=== PATIENT | female | born 1995 | race African-American/Black ===

== ENCOUNTER 2020-08-11 11:46 | Outpatient (CLI) | payer OTHER, SELFPAY ==
[2020-08-11 22:32] LABS: SARS-CoV-2 RNA PCR Negative
== END 2020-08-11 11:47 | disposition home or self-care (01) ==
LOC: ANHCOVIDDT 11:47
PROVIDERS: PCP Nurse Practitioner Family; Visit Provider Otolaryngology
DX: Z01.812 Encounter for preprocedural laboratory examination (principal); Z11.59 Encounter for screening for other viral diseases
CPT/HCPCS: 87635; C9803; U0003

== ENCOUNTER 2020-08-12 09:37 | Outpatient (CLI) | payer OTHER, SELFPAY ==
--- NOTE | 2020-08-12 09:40 | ECG_ITS ---
Measurements Intervals [place] Rate: 66 P: 58 MA: 152 QRS: 28 QRSD: 82 T: 19 QT: 392 QTc: 412 Interpretive Statements SINUS RHYTHM WITH SINUS ARRHYTHMIA NONSPECIFIC T-WAVE ABNORMALITY- INFERIOR LEADS BASELINE ARTIFACT- I, II, AVR BORDERLINE ECG Electronically Signed On 08-12-2020 10:16:10 [employer]NAGER POST by Tomas Fajardo D.O.
== END 2020-08-12 09:38 | disposition home or self-care (01) ==
LOC: ANHSURGERY 09:40
PROVIDERS: PCP Nurse Practitioner Family; Visit Provider Otolaryngology
DX: Z01.818 Encounter for other preprocedural examination (principal); I10 Essential (primary) hypertension; R94.31 Abnormal electrocardiogram [ECG] [EKG]
CPT/HCPCS: 93005

== ENCOUNTER 2020-08-13 01:37 | Day surgery (SDC) | payer OTHER, SELFPAY ==
[2020-08-11 13:35] VITALS: BMI 31.0
--- NOTE | 2020-08-12 09:40 | WPDANESEPPF ---
Anes - Initial Pre Proc Eval Procedure: Operation Date: 08/13/20 11:45 Proposed Procedures p Closed Reduction Nasal Fracture, Closed Reduction Septal Fracture - Rafa Lackey MD Date/Time: 08/12/20 09:40 Surgeon: Rafa Lackey MD Pre Op Diagnosis: nasal fracture Patient Data Age: 24 Gender: F Height: 1.6 m Weight: 79.4 kg Allergies Allergy/AdvReac Type Severity Reaction Status Date / Time No Known Allergies Allergy Verified 08/13/20 09:48 Home Medications Medication Instructions Recorded Confirmed Type ibuprofen [Advil] 200 mg PO Q6H PRN 08/11/20 08/13/20 History Patient hx anesthesia problems: none Family hx anesthesia problems: none [facility] Past Medical History Medical History (Updated 08/12/20 @ 09:40 by Lino Blue DO) Hypertension Social History Social History (Updated 08/11/20 @ 11:13 by Pascale Santizo MA) Smoking status: Never smoker Alcohol intake: never Substance use: never Living arrangements: other Spiritual care concerns: No Anes - Eval Final PreProcedure Day of Procedure 08/12/20 09:40 Patient weight: obese Heart: regular rate and rhythm Lungs: clear to auscultation and normal air movement Airway: Mallampati scale class II Neurological: alert and oriented Last oral intake: >/= 8 hours ASA classification: III Emergent: no Anesthetic plan: proceed Anesthesia type and monitoring: general ETT and standard monitoring Informed Consent: The patient's anesthetic plan and its attendant risks and benefits were discussed with the patient/family/POA. Questions were solicited and answers provided to the satisfaction of the patient/family/POA.
--- NOTE | 2020-08-12 15:09 | PM.IMHP ---
H&P: HPI History of Present Illness Date/Time: 08/12/20 15:09 Chief Complaint: Nasal septal fracture, nasal bone fracture Narrative: Jody Stevenson is a 24 year old female status post trauma. Presents for planned surgical procedure. No changes to medical history of symptoms. Review of Systems Constitutional: Constitutional: Denies fatigue, Denies fever(s) and Denies lethargy Eyes: Eyes: Denies blurry vision and Denies change in vision ENT: Reports as per HPI Cardiovascular: Cardiovascular: Denies chest pain Respiratory: Respiratory: Denies cough Endocrine: Endocrine: Denies fatigue Hematologic/Lymphatic: Hematologic/Lymphatic: Denies easy bleeding, Denies easy bruising and Denies lymphadenopathy Allergic/Immunologic: Allergic/Immunologic: Denies seasonal rhinorrhea [facility] Past Medical History Medical History (Updated 08/12/20 @ 09:40 by Lino Blue DO) Hypertension Social History Social History (Updated 08/11/20 @ 11:13 by Pascale Santizo MA) Smoking status: Never smoker Alcohol intake: never Substance use: never Spiritual care concerns: No Meds Home Medications and Allergies Home Medications Medication Instructions Recorded Confirmed Type ibuprofen [Advil] 200 mg PO Q6H PRN 08/11/20 08/11/20 History Allergies Allergy/AdvReac Type Severity Reaction Status Date / Time No Known Allergies Allergy Verified 08/11/20 13:20 Exam Const: General: cooperative, healthy appearing, comfortable, well developed and alert HENMT: Head: normal to inspection, normocephalic and atraumatic Ears: hearing grossly normal bilaterally, external ears normal, TM's normal bilaterally and EAC's normal General nose exam: external nose not normal ( dorsal deformity), Normal nares present, No nasal polyps present, Normal nasal mucous membranes and turbinates present and abnormal septum ( right septal deviation severe) Face and sinus: normal facial exam Mouth: Yes Normal oral and palatal mucosa present, Yes lip normal, Yes tongue normal, Yes oropharynx normal and Yes moist mucous membranes Teeth and gingiva: dentition normal and gingiva normal Throat: posterior oropharynx normal, tonsils normal and uvula midline Eyes: General: appearance normal, both eyes and all related structures Periorbital: periorbital findings normal Eyelids: eyelids normal Conjunctivae: conjunctivae normal Sclera: sclerae normal Neck: Neck: normal visual inspection, full ROM and no lymphadenopathy Thyroid: thyroid normal Lymphatic: no lymphadenopathy noted Resp: Effort & Inspection: normal respiratory effort and able to speak in complete sentences Cardio: Jugular venous distension: no JVD Neuro: Cranial nerves: Yes CN's II-XII intact bilaterally Assessment and Plan Assessment and plan (1) Nasal obstruction: Code(s): J34.89 - Other specified disorders of nose and nasal sinuses Status: Acute Assessment and Plan: Plan is for the operating room for bilateral for bilateral closed reduction of nasal bones as well as close reduction of nasal septal fracture. Both nasal bones are somewhat depressed and will be outfractured the nasal septum was fractured to the left. The risks and benefits were discussed in great detail including the need for further procedures failure to achieve cosmetic result, change in cosmesis, septal perforation, bleeding, pain, and . The patient voiced understanding of these risks and agreed. (2) Nasal septum fracture: Code(s): S02.2XXA - Fracture of nasal bones, initial encounter for closed fracture Status: Acute (3) Nasal bone fracture: Code(s): S02.2XXA - Fracture of nasal bones, initial encounter for closed fracture Status: Acute
[2020-08-13] VITALS (11 sets, daily range): BP systolic 134–182; BP diastolic 75–107; PULSE 53–115; RESP 14–16; TEMP 36.1–36.5; O2SAT 100
--- NOTE | 2020-08-13 07:01 | WPDHPUPDATE1 ---
History and Physical Update Update Date/Time: 08/13/20 07:01 History and Physical has been reviewed, including an updated exam of the patient. There are NO changes in the patient's condition. Risks, benefits, and alternatives have been discussed and questions answered. Patient agrees to proceed with procedure.
[2020-08-13] MEDS: LACTATED RINGERS 1,000 ML 30 ML IV CONT (10:09)
[2020-08-13] MEDS: ACETAMINOPHEN 500 MG TABLET 1000 MG PO (10:10)
[2020-08-13] MEDS: ceFAZolin 2 GM/D5W 50 ML 2 GM/50 ML BAG IVPB (11:54)
[2020-08-13] MEDS: OXYMETAZOLINE HCL 0.05% NAS 15 ML BTL (*BKC) 1 SPRAY NASAL (12:10)
[2020-08-13] MEDS: GELATIN SPONGE 12-7MM 1 EACH TOPICAL (12:16)
[2020-08-13] MEDS: GELATIN SPONGE SZ 100 1 EACH TOPICAL (12:17)
[2020-08-13] MEDS: fentaNYL CITRATE INJ (*CRX) 100 MCG/2 ML VIAL 25 MCG IV PUSH ×2 (12:38→12:41)
[2020-08-13] MEDS: oxyCODONE HCL (*CRX) 5 MG TAB IR PO (14:15)
[2020-08-13] MEDS: hydrALAZINE HCL 20 MG/ML VIAL 10 MG IV PUSH (14:29)
--- NOTE | 2020-08-16 08:06 | P.OP_ITS ---
Procedure Note - Detailed Date of procedure: 08/16/20 Pre-op diagnosis: nasal fracture 1. Nasal bone fracture 2. Nasal septal fracture Procedure performed: 1. Closed reduction nasal bone fracture 2. Closed reduction nasal septal fracture Description of procedure: The patient was correctly identified and consent was verified in the preoperative holding area. The patient was then brought to the operating room and a time-out was performed. General anesthesia was induced and endotracheal tube secured the patient's airway and taped to the left lower lip. Afrin-soaked pledgets were then placed in the bilateral nasal cavity and allowed to sit for 5 minutes. The pledgets were removed and a [place] elevator was utilized to fracture the nasal septum from the right back to the left and a more midline position. The nasal bones were then outfractured as both were somewhat concave. Bleeding was controlled with the re- insertion of Afrin-soaked pledgets. These were removed and Gelfoam packing was inserted underneath the right nasal bone as it is position was somewhat tenuous. Hemostasis was noted to be excellent. Of note the inferior turbinates were also outfractured. Care of the patient was then turned over to Anesthesiology. I performed all dictated portions of this procedure. Anesthesia: GLMA Surgeon: Rafa Lackey MD Estimated blood loss (mL): 5 Complications: No immediate complications Condition: stable Disposition: PACU
== END 2020-08-13 15:40 | disposition home or self-care (01) ==
PROVIDERS: PCP Nurse Practitioner Family; Visit Provider Otolaryngology
PROC: 0NSBXZZ Reposition Nasal Bone, External Approach (ICD-10-PCS; CPT 21315; principal; 2020-08-13 11:45)
DX: S02.2XXA Fracture of nasal bones, initial encounter for closed fracture (principal); X58.XXXA Exposure to other specified factors, initial encounter; I10 Essential (primary) hypertension; J34.89 Other specified disorders of nose and nasal sinuses; E66.9 Obesity, unspecified; Z68.31 Body mass index [BMI] 31.0-31.9, adult
CPT/HCPCS: 21337; 30930; A9270; J0330; J0360; J0690; J1100; J2250; J2405; J2704; J3010; J7120